=== PATIENT | male | born 1945 | race Two or more races ===

== ENCOUNTER 2023-07-11 11:02 | Outpatient (OUT) | payer MEDICARE, SELFPAY ==
--- NOTE | 2023-07-11 | XR_ITS ---
The [address] [address] Patient Name: SITA MARCELINO MRN: [id number] date: 1945 Sex: M Assigned Patient Location: [facility] Current Patient Location: [facility] Accession/Order Number: [id number] Exam Date: 07/11/2023 11:45 Report Date: 07/11/2023 16:09 At the request of: MOE DUNN Procedure: XR foot RT min 3V EXAM: XR foot RT min 3V HISTORY: RIGHT FOOT PAIN COMPARISON: 06/22/2021 TECHNIQUE: 3 views of the right foot were obtained FINDINGS: There is no evidence of an acute fracture or dislocation. Mild degenerative changes are seen at the first metatarsophalangeal joint, with a hallux valgus deformity. Mild degenerative changes are also seen at the interphalangeal joint of the great toe. The joint spaces are otherwise relatively intact. An ankle prosthesis remains in place. Calcifications and osteophytes are seen posterior to the ankle joint. An osteophyte arises from the plantar aspect of the calcaneus. XR/XR foot RT min 3V IMPRESSION: No acute fracture or dislocation. Degenerative and postsurgical changes are noted. Except for the arthroplasty of the tibiotalar joint, the overall appearance is not changed significantly. Electronically authenticated by: MOE MUELLER Date: 07/11/2023 16:09
--- NOTE | 2023-07-11 | XR_ITS ---
The [address] [address] Patient Name: SITA MARCELINO MRN: [id number] date: 1945 Sex: M Assigned Patient Location: [facility] Current Patient Location: [facility] Accession/Order Number: [id number] Exam Date: 07/11/2023 11:45 Report Date: 07/11/2023 12:25 At the request of: MOE DUNN Procedure: XR ankle RT min 3V PROCEDURE: XR ankle RT min 3V DATE: 07/11/2023 10:45 AM CDT COMPARISONS: CT right lower extremity 09/21/2022. Also plain radiographs 12/29/2021 CLINICAL INDICATION: RIGHT ANKLE PAIN FINDINGS: Tibiotalar prosthesis is again in place. It appears to be in good position and alignment in frontal and lateral projections, stable from previous CT and previous plain radiographs. There appears to be some soft tissue swelling about the ankle. There are some hypertrophic osseous changes posterior to the ankle, slightly more prominent than on 12/29/2021. There is a moderate-sized heel spur, stable. XR/XR ankle RT min 3V IMPRESSION: Stable postop changes of the right ankle. . Electronically authenticated by: ЮЛИЯ GONSALVES Date: 07/11/2023 12:25
== END 2023-07-11 11:03 | disposition home or self-care (01) ==
LOC: RAD 11:04
PROVIDERS: Visit Provider Podiatrist Foot & Ankle Surgery
DX: M25.571 Pain in right ankle and joints of right foot (principal)
CPT/HCPCS: 73610; 73630

== ENCOUNTER 2023-07-25 08:10 | Outpatient (OUT) | payer MEDICARE, SELFPAY ==
--- NOTE | 2023-07-25 08:45 | MR_ITS ---
The [address] [address] Patient Name: SITA MARCELINO MRN: [id number] date: 1945 Sex: M Assigned Patient Location: MRI Current Patient Location: MRI Accession/Order Number: [id number] Exam Date: 07/25/2023 08:45 Report Date: 07/25/2023 12:27 At the request of: MOE DUNN Procedure: MR ankle RT wo con EXAM: MR ankle RT wo con HISTORY: Right ankle and foot arthritis , Posterior tibial tendinitis right ankle pain. COMPARISON: Right ankle x-rays 07/11/2023. TECHNIQUE: Multi planar, multisequence MR imaging of the right ankle without contrast. Findings: Bones and cartilage: Tibiotalar arthroplasty generates susceptibility artifact limiting evaluation of the adjacent structures. No acute fracture or malalignment. Mild degenerative changes involving the articulation of the navicular and adjacent cuneiforms. Muscles and tendons: No abnormal signal within the visualized musculature. There is global muscular atrophy. The Achilles, anterior, medial and lateral tendons about the ankle are intact. There is minimal flexor digitorum and mild posterior tibial tenosynovitis. Ligaments: Limited evaluation due to susceptibility artifact. The spring ligament appears intact. Fat signal persists within the sinus Tarsi. Miscellaneous: The plantar fascia is not thickened. MR/MR ankle RT wo con IMPRESSION: 1. Tibiotalar arthroplasty generates susceptibility artifact limiting evaluation of the adjacent structures. 2. Mild degenerative changes of the navicular with the articulation of the cuneiforms. 3. Minimal flexor digitorum and mild posterior tibial tenosynovitis. Electronically authenticated by: AIMEE LYNCH Date: 07/25/2023 12:27
== END 2023-07-25 08:11 | disposition home or self-care (01) ==
LOC: MRI 08:10
PROVIDERS: Visit Provider Podiatrist Foot & Ankle Surgery
DX: M13.871 Other specified arthritis, right ankle and foot (principal); M76.821 Posterior tibial tendinitis, right leg
CPT/HCPCS: 73721

== ENCOUNTER 2023-08-22 11:03 | Outpatient (OUT) | payer MEDICARE, SELFPAY ==
--- NOTE | 2023-08-22 | XR_ITS ---
[address] [address] Patient Name: SITA MARCELINO MRN: [id number] date: 1945 Sex: M Assigned Patient Location: [facility] Current Patient Location: [facility] Accession/Order Number: [id number] Exam Date: 08/22/2023 09:50 Report Date: 08/22/2023 12:45 At the request of: MOE DUNN Procedure: XR foot EDSON min 3V EXAMINATION: XR foot EDSON min 3V HISTORY: BILATERAL FOOT PAIN COMPARISON: No relevant comparison available. FINDINGS: RIGHT FINDINGS: BONES: No acute fracture or dislocation. Tibiotalar arthroplasty in anatomic alignment. Stable degenerative changes most significant at the first metatarsal-phalangeal joint. Moderate plantar enthesopathic spurring of the calcaneus SOFT TISSUES: Negative. No visible soft tissue swelling. OTHER: Negative. LEFT FINDINGS: BONES: No acute fracture or dislocation. 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 SOFT TISSUES: Negative. No visible soft tissue swelling. OTHER: Negative. 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
== END 2023-08-22 11:04 | disposition home or self-care (01) ==
LOC: RAD 11:03
PROVIDERS: Visit Provider Podiatrist Foot & Ankle Surgery
DX: M19.071 Primary osteoarthritis, right ankle and foot (principal)
CPT/HCPCS: 73630